=== PATIENT | female | born 1980 | race Caucasian/White ===

== ENCOUNTER 2016-11-10 21:33 | Outpatient (CLI) | payer OTHER ==
[~2016-11-10 21:33] MED LIST: ACET325T45 PO; DOXY100T20 PO
[2016-11-10 22:33] VITALS: BP 108/69; PULSE 88; RESP 18
[2016-11-10] MEDS ORDERED: PRENAT PO (22:51)
[2016-11-10] MEDS ORDERED: FERR134T PO (22:51)
[2016-11-10 23:14] LABS: ADD UMIC NO; UR BILIRUBIN (Dip) NEGATIVE (NEGATIVE); UR BLOOD (Dip) NEGATIVE (NEGATIVE); UR CLARITY CLEAR (CLEAR); UR COLOR LT. YELLOW (YELLOW); UR GLUCOSE (Dip) NEGATIVE (NEGATIVE); UR KETONES (Dip) NEGATIVE (NEGATIVE); UR LEUKOCYTE ESTERASE (Dip) NEGATIVE (NEGATIVE); UR NITRITE (Dip) NEGATIVE (NEGATIVE); UR TOTAL PROTEIN (Dip) NEGATIVE (NEGATIVE); UR UROBILINOGEN (Dip) 0.2 E.U./dL (0.1-1.0)
--- NOTE | 2016-11-10 23:27 | QN ---
Documentation Comment iup 34 weeks co of ucx vss exam wnl os closed nst reactive a/p iup 34 weeks false labor dc home PRASAD SCHULTZ MD Nov 10, 2016 23:27
--- NOTE | 2016-11-11 00:11 | RADRPT ---
PROCEDURE: US biophysical profile. CLINICAL INDICATION: labor TECHNIQUE: Multiple sonographic images of the pelvis were obtained. The images were reviewed on a PACS workstation. COMPARISON: No prior studies are available for comparison. FINDINGS: There is a single viable intrauterine gestation in cephalic presentation. There is an anterior grad e II placenta.. Results of the biophysical profile are as follows breathing movement = 2/2 Gross body movement = 2/2 tone = 2/2 Quantitative amniotic fluid volume = 2/2. This yields a biophysical profile score of 8/8. There is an amniotic fluid index measuring 8.9 cm. heart rate measures 161 beats per minute. IMPRESSION: Single viable intrauterine gestation, with biophysical profile of 8/8. RPTAT: HBST .Zaire Nguyen MD, Date Time Electronically viewed and signed by .Zaire Nguyen MD, on 11/11/2016 00:11 .T/
--- NOTE | 2016-11-11 05:33 | TRIAGE ---
OB Triage Datetime Report Generated by CPN: 11/11/2016 05:33 Datetime: 11/10/2016 22:44 Time of Arrival: 11/10/2016 21:26 EGA: 34.6 Arrived By: Wheelchair Arrived From: Home Chief Complaint: w/ c/o occas ucs and vag pressure. Hx PTD at 34 wks Movement: Present Contractions: Irregular Time Contractions Began: 11/10/2016 16:00 Rupture of Membranes: Denies Vaginal Bleeding: None Vaginal Discharge: Denies Recent Sexual Intercouse: Denies Abdominal Trauma: Not Applicable Patient Complaints: Cramping Time Provider Notified: 11/10/2016 23:00 Provider Notified: Dr Bradley (Annotations: Data stored by N on behalf of user) Initial Plan: EFM, SVE Datetime: 11/10/2016 22:39 Stage of : OB Triage Labor Evaluation Frequency: x1 Monitor Mode: External Quality: Mild Pattern: Normal: <= 5 Contractions in 10 Minutes Resting Tone [place]: Relaxed Heart Rate FHR Baseline Rate: 140 Monitor Mode: External US FHR Baseline Changes: No Baseline Change Variability: Moderate 6-25 bpm Accelerations: 15X15 Decelerations: Variable Category: Category II Vaginal Exam Dilatation (cms): 0.0 Effacement (%): 50 Station: -3 Exam By: Mic Reina Membrane Status: Intact Vaginal Bleeding: None Cervix, Consistency: Moderate Cervix, Position: Anterior Datetime: 11/10/2016 22:09 Stage of : OB Triage Maternal Assessment Level of Consciousness: Fully Conscious Headache: Denies Blurred Vision: No Respiratory Effort: Unlabored Nausea/Vomiting: Denies RUQ Epigastric Pain: Denies Facial Edema: None Labor Evaluation Frequency: placed Monitor Mode: External Resting Tone [place]: Relaxed Monitor Mode: External US Comments: FHT 140 Pain Assessment Pain Scale: 5 Pain Presence: Intermittent Pain Type: Cramping; Pressure Pain Location: Abdomen; Perineum
== END 2016-11-11 00:45 | disposition home or self-care (01) ==
LOC: L-D 21:33 → OBT 21:33
PROVIDERS: ATTEND Obstetrics & Gynecology
DX: O47.03 False labor before 37 completed weeks of gestation, third trimester (principal); O09.523 Supervision of elderly multigravida, third trimester; Z3A.34 34 weeks gestation of pregnancy
CPT/HCPCS: 76818; 81003; Z7500; G0463

== ENCOUNTER 2016-12-08 19:12 | Inpatient (IN) | payer OTHER ==
[~2016-12-08] VITALS: Ht 160 cm; Wt 99.1 kg
[~2016-12-08 19:12] MED LIST changes: -ACET325T45 PO; -DOXY100T20 PO; +FERR134T PO; +PRENAT PO
[2016-12-08 19:44] VITALS: BP 108/67; PULSE 84; RESP 18; BMI 34.5
[2016-12-08] MEDS ORDERED: CALC600T11 PO (19:54)
[2016-12-08 20:28] LABS: ADD UMIC NO; UR ASCORBIC ACID NEGATIVE (NEGATIVE); UR BILIRUBIN (Dip) NEGATIVE (NEGATIVE); UR BLOOD (Dip) NEGATIVE (NEGATIVE); UR CLARITY CLEAR (CLEAR); UR COLOR YELLOW (YELLOW); UR GLUCOSE (Dip) NEGATIVE (NEGATIVE); UR KETONES (Dip) NEGATIVE (NEGATIVE); UR LEUKOCYTE ESTERASE (Dip) NEGATIVE Leu/ul (NEGATIVE); UR NITRITE (Dip) NEGATIVE (NEGATIVE); UR SPECIFIC GRAVITY (Dip) 1.013 (1.003-1.030); UR TOTAL PROTEIN (Dip) NEGATIVE (NEGATIVE); UR UROBILINOGEN (Dip) NEGATIVE (NEGATIVE)
[2016-12-08 20:39] LABS: ADD SCAN DIFF NO
[2016-12-08 20:43] LABS: BASOPHILS % 0.2 % (0.0-2.0); EOSINOPHILS # 0.1 10^3/ul (0.0-0.5); EOSINOPHILS % 1.6 % (0.0-7.0); HEMATOCRIT 35.6 % (37.0-47.0); HEMOGLOBIN 12.1 g/dl (12.0-16.0); LYMPHOCYTES # 1.6 10^3/ul (0.8-2.9); LYMPHOCYTES % 19.5 % (15.0-51.0); MEAN CORPUSCULAR HEMOGLOBIN 30.6 pg (29.0-33.0); MEAN CORPUSCULAR VOLUME 89.9 fl (82.0-101.0); MEAN PLATELET VOLUME 10.2 fl (7.4-10.4); MONOCYTE # 0.8 10^3/ul (0.3-0.9); MONOCYTES % 9.7 % (0.0-11.0); NEUTROPHIL # 5.5 10^3/ul (1.6-7.5); PLATELET COUNT 255 10^3/UL (140-415); RED BLOOD COUNT 3.96 10^6/ul (4.20-5.40); RED CELL DISTRIBUTION WIDTH 14.6 % (11.5-14.5); WHITE BLOOD COUNT 8.1 10^3/ul (4.8-10.8)
[2016-12-08 21:02] LABS: ALBUMIN 3.9 g/dl (3.3-4.9); ALBUMIN/GLOBULIN RATIO 1.25; BILIRUBIN,INDIRECT 0.1 mg/dl (0-1.1); BILIRUBIN,TOTAL 0.1 mg/dl (0.2-1.3); CALCIUM 8.9 mg/dl (8.4-10.2); CREATININE 0.45 mg/dl (0.44-1.00); POTASSIUM 3.8 mmol/L (3.5-5.1); URIC ACID 3.4 mg/dl (3.1-7.9)
[2016-12-08] MEDS ORDERED: METHYLERGONOVINE 0.2 MG INJ IM PRN (23:30)
[2016-12-08] MEDS ORDERED: DINOPROSTONE 10 MG VAG SUPP VAG ONE (23:30)
[2016-12-08] MEDS ORDERED: MISOPROSTOL 200 MCG TAB PR PRN (23:30)
[2016-12-08] MEDS ORDERED: LIDOCAINE 1% (MPF) 30 ML INJ INJ PRN (23:30)
[2016-12-08] MEDS ORDERED: OXYTOCIN 30 UNITS/LR 500 ML IV PRN (23:30)
[2016-12-08] MEDS ORDERED: OXYTOCIN 30 UNITS/LR 500 ML IV SCH ×2 (23:30)
[2016-12-08] MEDS ORDERED: CARBOPROST 250 MCG INJ IM PRN (23:30)
[2016-12-09 00:35] LABS: INR 0.95; PROTIME 12.7 Sec (12.2-14.2)
[2016-12-09 00:36] LABS: PARTIAL THROMBOPLASTIN TIME 27.2 Sec (25.0-35.0)
--- NOTE | 2016-12-09 00:57 | RADRPT ---
PROCEDURE: US OB. CLINICAL INDICATION: Macrosomia. TECHNIQUE: Multiple sonographic images of the pelvis were obtained. Transabdominal imaging only w as performed. The images were reviewed on a PACS workstation. COMPARISON: 11/10/2016 FINDINGS: There is a single viable intrauterine gestation. Cardiac activity is present with 139 beats per minute. There is a cephalic presentation. Measurements were made in order to determine age. The results are as follows: BPD = 9.75 cm HC = 33.83 cm AC = 34.84 cm FL = 7.54 cm Estimated gestational age of approximately 39 weeks 0 days. The estimated date of delivery is 12/16/2016. The EFW = 3619 g. EFW percentile: 69% The placenta is anterior, grade 2. There is no evidence for an abruption or placenta previa. IMPRESSION: 1. Single viable intrauterine gestation of approximately 39 weeks 0 days, based on ultrasound measu rements. The estimated date of delivery is 12/16/2016. 2. EFW percentile: 69%. RPTAT: HTAR .Stewart Hoffman MD, Date Time Electronically viewed and signed by .Stewart Hoffman MD, on 12/09/2016 00:57 .R/
[2016-12-09] MEDS: LACTATED RINGER'S 1,000 ML IV SCH ×4 (01:05→20:07)
[2016-12-09] MEDS ORDERED: LACTATED RINGER'S 1,000 ML IV PRN (03:00)
--- NOTE | 2016-12-09 07:08 | QN ---
Documentation Comment iup 38 weeks co ucs vss exam wno nst reactive a/p iup 38 weeks false labor dc home PRASAD SCHULTZ MD Dec 09, 2016 07:08
[2016-12-09] MEDS: BUTORPHANOL 2 MG INJ IV PRN ×2 (11:58→17:53)
[2016-12-09] MEDS ORDERED: OXYTOCIN 30 UNITS/LR 500 ML IV SCH (14:00)
[2016-12-09] MEDS ORDERED: FENTAnyl 2MCG/ML-ROPIV 0.2% 100 ML ONE (21:18)
[2016-12-09] MEDS ORDERED: NALOXONE (0.4 MG/ML) INJ IV PRN (22:00)
[2016-12-09] MEDS ORDERED: FENTAnyl 2MCG/ML-ROPIV 0.2% 100 ML BAG EPI SCH (22:00)
[2016-12-09] MEDS ORDERED: ONDANSETRON 4 MG INJ IV PRN (22:00)
[2016-12-09] MEDS ORDERED: EPHEDrine SULFATE 50 MG/5 ML SYG IV PRN (22:00)
[2016-12-09] MEDS ORDERED: DIPHENHYDRAMINE 50 MG INJ IV PRN (22:00)
[2016-12-10] MEDS: LACTATED RINGER'S 1,000 ML IV SCH ×6 (00:35→22:35)
--- NOTE | 2016-12-10 01:57 | QN ---
Documentation Comment Laborist In to see pt and review FHT at request of primary OB, Dr. Stockton. Pt recently started having variables which were not improved with position changes and IVF bolus. On review of FHT, recurrent variable decels to 90s noted in the setting of a baseline 150s with mod jacek. Discussed with pt recommendation for placement of IUPC for the purpose of amnioinfusion and pt amenable to this. Questions were answered to her satisfaction. On SVE, initially 6/70/0, however after placement of IUPC, 770/0. Amnioinfusion to start. FWB overall reassuring despite Category II FHT. LUANNE GONCALVES MD Dec 10, 2016 01:57
--- NOTE | 2016-12-10 04:35 | HP ---
Date/Time of Note Date/Time of Note DATE: 12/10/16 TIME: 04:30 OB - History Hx of Present Free Text/Dictation 35 yo iup at 39 wks ga, complaining with generalized itching and rash in lower extremity. Patient admitted for delivery secondary to suspected cholestasis of . Estimated Due Date: Dec 16, 2016 : 7 Para: 4 Spontaneous : 2 Therapeutic : 0 Care: Good Care Ultrasounds: Normal mid trimester US Obstetrical Complications: None Medical Complications: None Other Concerns: suspected cholestasis Past Family/Social History * Past Medical, Surgical, Family and Obstetric Histories reviewed from chart. OB Admission Exam Vital Signs Vital Signs Vital Signs Date Time Temp Pulse Resp B/P Pulse Ox O2 Delivery O2 Flow Rate FiO2 12/08/16 19:44 97.9 84 18 108/67 Room Air Physical Exam HEENT: WNL Heart: Rhythm Normal Lungs: Clear, Equal Abdomen: WNL Extremities: Other (rash in lower extremity ) Reflexes: Normal Cervical Dilatation: None Effacement: 50% Station: -3 Membranes: Intact Heart Rate: 140's Accelerations: Accelerations Present Decelerations: No Decelerations Varibility: Moderate Contractions on Admission: None Last 72 hours Lab Results CBC & BMP 12/08/16 20:35 Liver Function Test 12/08/16 20:35 Alanine Aminotransferase (ALT/SGPT) 29 Albumin 3.9 Alkaline Phosphatase 144 H Aspartate Amino Transf (AST/SGOT) 17 Direct Bilirubin 0.00 Total Protein 7.0 OB Assessment/Plan Other Assessment: cholestasis Plan: Induction Induction Method: per Misoprostol Protocol NICO FATIMA MD Dec 10, 2016 04:35
[2016-12-10] MEDS ORDERED: AMPICILLIN 2 GM/NS (PMX) 100 ML ONE (04:49)
--- NOTE | 2016-12-10 04:58 | QN ---
Documentation Comment patient seen and evaluated vs t 100.3 abdomen graivid nt extremity plus 1 pitting edema no calf tenderness ve: fd/ 100/ -1 fhr 170's/180' toco regular ctx a/ 35 yo iup at 39 wks ga, ama, cholestasis of , cat 2 tracing, trending towards chorioamnionitis. patient decline to continue labor and desires CD. P/ start triple antibiotics consent for primary CD r/b/a explained NICO FATIMA MD Dec 10, 2016 04:58
[2016-12-10] MEDS ORDERED: GENTAMICIN 120 MG/NS (PMX) 100 ML IVPB SCH (05:00)
[2016-12-10] MEDS ORDERED: CLINDAMYCIN 900 MG INJ IM ONE (05:00)
[2016-12-10] MEDS ORDERED: AMPICILLIN 2 GM/NS (PMX) 100 ML IVPB SCH (05:00)
[2016-12-10] MEDS ORDERED: CLINDAMYCIN 900 MG/D5W (PMX) 50 ML IVPB ONE (05:17)
[2016-12-10] MEDS ORDERED: CLINDAMYCIN 900 MG/D5W (PMX) 50 ML IVPB SCH (05:30)
[2016-12-10] MEDS ORDERED: OXYTOCIN 30 UNITS/LR 500 ML IV ONE (05:30)
[2016-12-10] MEDS ORDERED: OXYTOCIN 10 UNIT INJ ONE (05:30)
[2016-12-10] MEDS ORDERED: ONDANSETRON 4 MG INJ ONE (05:30)
[2016-12-10] MEDS ORDERED: morphine SULFATE/PF (10 MG/10 ML) INJ ONE (05:30)
[2016-12-10] MEDS ORDERED: EPHEDrine SULFATE 50 MG/5 ML SYG ONE (05:30)
[2016-12-10] MEDS ORDERED: METOCLOPRAMIDE 10 MG INJ ONE (05:30)
[2016-12-10] MEDS ORDERED: ONDANSETRON 4 MG INJ IV PRN (06:30)
[2016-12-10] MEDS ORDERED: NALOXONE (0.4 MG/ML) INJ IV PRN (06:30)
[2016-12-10] MEDS ORDERED: HYDROmorphONE 1 MG/ML SYG IV PRN ×2 (06:30)
[2016-12-10] MEDS ORDERED: morphine SULFATE/PF (10 MG/10 ML) INJ EPI ONE (06:30)
[2016-12-10] MEDS ORDERED: DIPHENHYDRAMINE 50 MG INJ IV PRN (06:30)
[2016-12-10] MEDS ORDERED: KETOROLAC 30 MG INJ IV PRN (06:30)
[2016-12-10] MEDS ORDERED: morphine 2 MG INJ IV PRN ×2 (06:30)
[2016-12-10] MEDS ORDERED: OXYCODONE/ACETAMINOPHEN (5/325) TAB PO PRN (07:00)
[2016-12-10] MEDS ORDERED: OXYTOCIN 30 UNITS/LR 500 ML IV PRN (07:00)
[2016-12-10] MEDS ORDERED: CARBOPROST 250 MCG INJ IM PRN (07:00)
[2016-12-10] MEDS ORDERED: NA PHOSPHATE/BIPHOS 133 ML ENEMA PR PRN (07:00)
[2016-12-10] MEDS ORDERED: CLINDAMYCIN 900 MG/D5W (PMX) 50 ML IV ONE (07:00)
[2016-12-10] MEDS ORDERED: LANOLIN 7 GM TUBE TOP PRN (07:00)
[2016-12-10] MEDS ORDERED: METHYLERGONOVINE 0.2 MG INJ IM PRN (07:00)
[2016-12-10] MEDS ORDERED: GENTAMICIN 280 MG in SOD CHLORIDE 0.9% 100 ML IVPB SCH (07:00)
[2016-12-10] MEDS ORDERED: MISOPROSTOL 200 MCG TAB PR PRN (07:00)
[2016-12-10] MEDS: SENNA/DOCUSATE NA (8.6MG/50MG) TAB PO SCH ×2 (10:32→21:00)
[2016-12-10 11:08] LABS: ADD SCAN DIFF NO
[2016-12-10 11:23] LABS: ABNORMAL IP MESSAGE 1; BASOPHILS % 0.1 % (0.0-2.0); HEMATOCRIT 24.1 % (37.0-47.0); HEMOGLOBIN 8.1 g/dl (12.0-16.0); LYMPHOCYTES # 1.3 10^3/ul (0.8-2.9); LYMPHOCYTES % 5.6 % (15.0-51.0); MEAN CORPUSCULAR HEMOGLOBIN 30.8 pg (29.0-33.0); MEAN CORPUSCULAR HGB CONC 33.6 g/dl (32.0-37.0); MEAN CORPUSCULAR VOLUME 91.6 fl (82.0-101.0); MEAN PLATELET VOLUME 10.8 fl (7.4-10.4); MONOCYTE # 1.8 10^3/ul (0.3-0.9); MONOCYTES % 7.8 % (0.0-11.0); NEUTROPHIL # 19.2 10^3/ul (1.6-7.5); NEUTROPHILS % 85.9 % (39.0-77.0); PLATELET COUNT 228 10^3/UL (140-415); RED BLOOD COUNT 2.63 10^6/ul (4.20-5.40); RED CELL DISTRIBUTION WIDTH 14.8 % (11.5-14.5); WHITE BLOOD COUNT 22.3 10^3/ul (4.8-10.8)
[2016-12-10 11:33] LABS: ALBUMIN 2.5 g/dl (3.3-4.9); ALBUMIN/GLOBULIN RATIO 1.13; BILIRUBIN,INDIRECT 0.4 mg/dl (0-1.1); BILIRUBIN,TOTAL 0.4 mg/dl (0.2-1.3); CALCIUM 7.8 mg/dl (8.4-10.2); CREATININE 0.74 mg/dl (0.44-1.00); POTASSIUM 3.8 mmol/L (3.5-5.1); TOTAL PROTEIN 4.7 g/dl (6.1-8.1)
[2016-12-10] MEDS: AMPICILLIN 2 GM/NS (PMX) 100 ML IV SCH ×2 (11:48→18:52)
[2016-12-10] MEDS ORDERED: AMPICILLIN 2 GM/NS (PMX) 100 ML IV SCH (12:00)
[2016-12-10] MEDS: GENTAMICIN 80 MG/NS (PMX) 50 ML IVPB SCH ×2 (13:45→20:09)
--- NOTE | 2016-12-10 14:32 | RADRPT ---
PROCEDURE: US Pelvis. CLINICAL INDICATION: Pelvic pain. Status post . TECHNIQUE: Multiple sonographic images of the pelvis were obtained utilizing a transabdominal and endovaginal technique. The images were reviewed on a PACS workstation. This exam is limited due to the patient's overlying wound dressing. COMPARISON: December 09, 2016 FINDINGS: The uterus is anteverted and . Along the surgical incision, there is a focal, 1 x 1 x 1 cm hematoma. No free fluid, fluid collection or pelvic hematoma identified. The bilateral adnexal are otherwise unremarkable. IMPRESSION: Unremarkable pelvic ultrasound. Status post recent . 1 cm focal hematoma along the surgica l incision. Otherwise, no free fluid, fluid collection or pelvic hematoma. RPTAT: EE .Carola Gaviria MD, Date Time Electronically viewed and signed by .Carola Gaviria MD, on 12/10/2016 14:32 .F/
[2016-12-10] MEDS: CLINDAMYCIN 900 MG/D5W (PMX) 50 ML IVPB SCH ×2 (14:57→22:11)
--- NOTE | 2016-12-10 18:42 | RADRPT ---
PROCEDURE: CT abdomen and pelvis with contrast. CLINICAL INDICATION: Pain after with bleeding TECHNIQUE: CT scan of the abdomen and pelvis with contrast was performed on a multi-slice CT scann . The patient was scanned after administration of 100 cc of Isovue 300 intravenous contrast. Oral contrast was also administered. Sagittal and coronal reformatted images were obtained from the axial source images. DLP 926.3 mGycm. CTDIvol 16.4 mGy COMPARISON: None. FINDINGS: Mild bibasilar atelectasis is present.. Postsurgical changes are seen in the anterior lower abdominal wall from recent . They ther e is fat stranding is seen along the incisional site with subcutaneous air and trace fluid without o rganized subcutaneous fluid collection. There is also mild fat stranding within the abdominal wall musculature itself. There is an enlarged edematous appearance the uterine parenchyma with air seen in the uterine cavity and in the anterior lower uterine segment myometrium likely related to postsurgical changes. There is an area of heterogeneous density measuring 9.6 x 8.7 cm within the lower uterine parenchyma which enhances differently than the remaining uterus seen in the surgical bed worrisome for dehiscence of the site and presence of a hematoma. There is mild hemorrhagic fluid and fat stranding s een in the anterior fat adjacent to the uterus. The bladder is collapsed around a De La Vega catheter. There is mild intraperitoneal free fluid, with a small intraperitoneal free air likely related to re cent surgery. There is hepatomegaly and fatty infiltration of the liver with no focal lesion or biliary ductal dil atation. The gallbladder is unremarkable without inflammation, and the portal vein is intact withou t thrombus. The spleen is unremarkable without mass. The adrenal glands are within normal limits without mass. The kidneys enhance symmetrically bilaterally without hydronephrosis or perinephric stranding. Ther e are no renal or ureteral calculi. The pancreas is unremarkable without focal lesion or surrounding inflammatory changes. There is no bowel obstruction or focal bowel inflammation. The appendix is not seen. There is a mil dly fecal filled colon. There are no enlarged lymph nodes. The aorta is unremarkable and there is no acute osseous abnormality. IMPRESSION: Surgical changes is seen with a suspected hematoma measuring 9.6 x 8.7 7 meters in the ant erior lower uterine segment parenchyma which has abnormal density and possible dehiscence of the C-s ection site within the uterine parenchyma. There is a small amount of hemorrhage and fluid seen in the fat anterior to the uterus on the smaller intra peritoneal ascites. There is air within the per itoneal cavity, anterior retroperitoneal fat, abdominal wall in the subcutaneous fat related to surg ical changes without evidence of an organized fluid collection to suggest an abscess. Hepatomegaly and fatty liver. Enlarged edematous appearance of the uterus likely related to recent state. Bibasilar atelectasis. RPTAT: AA .Killian Martines MD, MD Date Time Electronically viewed and signed by .Killian Martines MD, on 12/10/2016 18:41 .J/
[2016-12-10 20:07] LABS: ADD SCAN DIFF NO
[2016-12-10 20:09] LABS: BASOPHILS % 0.2 % (0.0-2.0); EOSINOPHILS % 0.1 % (0.0-7.0); HEMATOCRIT 28.4 % (37.0-47.0); HEMOGLOBIN 9.8 g/dl (12.0-16.0); LYMPHOCYTES # 1.8 10^3/ul (0.8-2.9); LYMPHOCYTES % 10.1 % (15.0-51.0); MEAN CORPUSCULAR HEMOGLOBIN 30.4 pg (29.0-33.0); MEAN CORPUSCULAR HGB CONC 34.5 g/dl (32.0-37.0); MEAN CORPUSCULAR VOLUME 88.2 fl (82.0-101.0); MEAN PLATELET VOLUME 10.2 fl (7.4-10.4); MONOCYTE # 1.5 10^3/ul (0.3-0.9); MONOCYTES % 8.5 % (0.0-11.0); NEUTROPHILS % 80.5 % (39.0-77.0); PLATELET COUNT 181 10^3/UL (140-415); RED BLOOD COUNT 3.22 10^6/ul (4.20-5.40); RED CELL DISTRIBUTION WIDTH 15.3 % (11.5-14.5); WHITE BLOOD COUNT 17.4 10^3/ul (4.8-10.8)
--- NOTE | 2016-12-10 20:32 | OPR ---
Operative Report Planned Procedure Free Text/Dictation DATE OF OPERATION: 12/10/2016 PREOPERATIVE DIAGNOSIS: 35 yo Intrauterine at 39 weeks gestational age, AMA, cholestasis of , category 2 tracing, arrest in descent, mulitparous POSTOPERATIVE DIAGNOSIS: Same. OPERATION PERFORMED: Primary low transverse delivery with bilateral tubal ligation, modified Malcolm method SURGEON: Nico Fatima MD. IN HOME CAREGIVER: Dr. Porter ANESTHESIA: Epidural COMPLICATIONS OF PROCEDURE: None. ESTIMATED BLOOD LOSS: 700 mL. (Reported patient has vaginal bleeding Post approximately 500 ml) FINDINGS: A viable female, 9 and 9 respectively at 1 and 5 minutes. Weight 3,405 grams . OP presentation, Normal uterus, tubes and ovaries. Pathology: portion of right and left fallopian tube, placenta DESCRIPTION OF PROCEDURE: After explaining the risks, benefits and alternatives , the patient and consent signed in chart, the patient was taken to the operating room where epidural anesthesia was found to be adequate. She was then prepared and draped in normal sterile fashion in dorsal supine position with a leftward tilt. A Pfannenstiel skin incision was then made with a scalpel and carried to the underlying layer of fascia. The fascia was incised in the midline and incision was extended laterally with Flanagan scissors. The superior aspect of the fascial incision was grasped with curved clamps, elevated and the underlying rectus muscles dissected off bluntly. Attention was then turned to the inferior aspect of the incision, which in similar fashion was grasped, tented up with curved clamps and the rectus muscles dissected off bluntly. The rectus muscles were then in midline, peritoneum identified, tented up with Metzenbaum scissors. The peritoneal incision was extended superiorly, inferiorly with good visualization of bladder. . At this point, the bladder blade was then inserted and the vesicouterine peritoneum identified, grasped with pickups and entered sharply with Metzenbaum scissors. This incision was extended laterally and the bladder flap created digitally. The bladder blade was then reinserted and was incised in transverse fashion with a scalpel. The uterine incision was extended laterally. The bladder blade was removed and the 's head delivered atraumatically. The nose and mouth were suctioned and cord clamped and cut. The infant was handed off to awaiting direct chill caster. The placenta was then removed. The uterus was exteriorized and cleared of all clots and debris. The uterine incision was repaired with 1-0 chromic in a running locked fashion. A second layer of same suture was used for imbrication obtaining excellent hemostasis. At this point, a [place] clamp was used to grasp the left tube approximately 4 cm from the cornual region. A 3 cm segment of tube was ligated with a free tie of plain gut and excised. Good hemostasis was noted. Similarly, the right fallopian tube was excised. The uterus was returned to the abdomen. The gutters were cleared of all clots. Good hemostasis was assured from the tubal ligation site and uterine incision. Fibrillar was placed in lower uterine segment (prophylactically) The peritoneum was reapproximated with 2-0 plain gut in interrupted fashion. The fascia was reapproximated with 0 Vicryl in a running fashion. The subcutaneous tissue was reapproximated with 2-0 plain gut in a running fashion. The skin was closed with charlee. The patient tolerated procedure well. Sponge, lap and needle counts correct x2. The patient was taken to recovery room in stable condition. Procedure date Dec 10, 2016 Procedure(s) primary CD with bilateral tubal ligation Procedure Description Under satisfactory [] anesthesia, the patient was prepped and draped and placed in a supine position, tilted to the left. Pfannenstiel incision was made, carried through the subcutaneous tissue. Bleeders brought under control with electrocautery. Fascia incised to the length of the incision. Rectus muscles from the fascia, divided midline. Peritoneum exposed, entered through a transverse incision. Exploration of abdomen revealed gravid uterus. Bladder flap was developed. Transverse incision was made in the lower segment of the uterus. Amniotic sac ruptured. [] amniotic fluid noted. [] Nasal oropharyngeal suction was performed. The baby was handed to the team for immediate attention. The placenta was delivered manually intact. Uterine cavity was cleaned with wet sponge and drainage established. Uterus closed in 2 layers using [] in continuous fashion. Peritoneal cavity irrigated with warm saline. Sponge, needle and instrument count reported to be correct. Abdominal peritoneum closed with [] continuously. Rectus muscle approximated with []. Fascia closed with [], and skin closed with charlee. Estimated blood loss []mL. Urine bag contained []mL of urine Post-Procedure Findings: Live Baby [], Apgars [] and [], weight [], position [], [] presentation []cord. Disposition: PACU Physician Certification I, the undersigned physician, hereby certify that I have discussed the procedure described in this consent form with this patient (or the patient's legal community engagement representative), including: * The risk and benefits of the procedure; * Any adverse reactions that may reasonably be expected to occur; * Any alternative efficacious methods of treatment which may be medically viable ; * The potential problems that may occur during recuperation; * Potential for blood transfusion and associated risks/benefits; and * Any research or economic interest I may have regarding this treatment. I further certify that the patient/legally responsible person was encouraged to ask question and that all questions were answered. NICO FATIMA MD Dec 10, 2016 20:30
--- NOTE | 2016-12-10 20:49 | QN ---
Documentation Comment Progress note POD 0 Patient was seen and evaluated patient received 2 units of prbc earlier secondary to symptomatic anemia. Patient currently lying in supine position with and baby in room without any distress patient has no complaints. No n/v no sob, no visual changes, no palpitation vs temp 98.6 bp 106/57 O2 98percent Heent normal lungs cta b/l cvs s1s2 rrr abdomen postive distention tympanic, soft nt. incision c/d/i with charlee in place extremity plus 2 b/l pitting edema, no calf tenderness ve no active vaginal bleeding ct scan suspected pelvic hematoma. (discussed with dr. cheung,radiologist, best to observe patient if stable) cbc post transfusion h/h 9.8/28.4 a/ s/p primary CD with btl, given 2 units of prbc, suspected pelvic hematoma patient currently stable, afebrile p/ continue to monitor patient transfuse 1 unit of ffp and platelet per recommendation of anesthesia consider to surgical reexplore surgically if needed. NICO FATIMA MD Dec 10, 2016 20:48
[2016-12-10] MEDS ORDERED: morphine 4 MG/ML VIAL IV PRN (21:00)
[2016-12-10] MEDS ORDERED: CA CHLORIDE 10% 10 ML SYRINGE IV ONE (22:30)
[2016-12-10] MEDS ORDERED: CA CHLORIDE 10% 10 ML SYRINGE ONE (22:33)
[2016-12-10] MEDS ORDERED: NA BICARBONATE 8.4% 50 ML SYG ONE ×2 (22:34→22:55)
[2016-12-10] MEDS ORDERED: NA BICARBONATE 8.4% 50 ML SYG IV STA (22:50)
[2016-12-10] MEDS ORDERED: LIDOCAINE 100 MG SYRINGE ONE (22:55)
[2016-12-11] MEDS ORDERED: CA CHLORIDE 10% 10 ML SYRINGE IV ONE
[2016-12-11] MEDS ORDERED: NA BICARBONATE 8.4% 50 ML SYG IV ONE
[2016-12-11] MEDS: AMPICILLIN 2 GM/NS (PMX) 100 ML IV SCH ×2 (00:12→05:31)
--- NOTE | 2016-12-11 00:52 | RADRPT ---
PROCEDURE: US Non-OB Pelvis. CLINICAL INDICATION: Swelling, status post section earlier today. TECHNIQUE: Multiple sonographic images of the pelvis were obtained utilizing a transabdominal tech nique. The images were reviewed on a PACS workstation. COMPARISON: CT of the abdomen pelvis and pelvic ultrasound dated 12/10/2016 FINDINGS: There is an enlarged, appearance of the uterus. The anterior uterine myometrium is heter ogeneously hypoechoic, probably representing blood related to recent section. Doppler imag ing reveals no vascularity in this region. The endometrium is not definitively thickened. The ovaries are not visualized. There is a small volume of free fluid in the right adnexa. No adnexal masses are noted. IMPRESSION: 1. Enlarged, appearance of the uterus. 2. Heterogeneously hypoechoic anterior uterine myometrium, probably representing blood related to r ecent section. No vascularity is identified in this region to suggest active bleeding. 3. The ovaries are not visualized. 4. Small volume free pelvic fluid in the right adnexa. RPTAT: HTAR .Stewart Hoffman MD, Date Time Electronically viewed and signed by .Stewart Hoffman MD, on 12/11/2016 00:51 .R/
[2016-12-11] MEDS ORDERED: LIDOCAINE 100 MG SYRINGE IV ONE (01:00)
[2016-12-11 01:11] LABS: ADD SCAN DIFF NO
[2016-12-11 01:12] LABS: BASOPHILS % 0.2 % (0.0-2.0); EOSINOPHILS % 0.1 % (0.0-7.0); HEMATOCRIT 31.3 % (37.0-47.0); HEMOGLOBIN 10.9 g/dl (12.0-16.0); LYMPHOCYTES # 1.8 10^3/ul (0.8-2.9); LYMPHOCYTES % 11.4 % (15.0-51.0); MEAN CORPUSCULAR HEMOGLOBIN 29.6 pg (29.0-33.0); MEAN CORPUSCULAR HGB CONC 34.8 g/dl (32.0-37.0); MEAN CORPUSCULAR VOLUME 85.1 fl (82.0-101.0); MEAN PLATELET VOLUME 10.4 fl (7.4-10.4); MONOCYTE # 1.3 10^3/ul (0.3-0.9); MONOCYTES % 8.4 % (0.0-11.0); NEUTROPHIL # 12.7 10^3/ul (1.6-7.5); PLATELET COUNT 174 10^3/UL (140-415); RED BLOOD COUNT 3.68 10^6/ul (4.20-5.40); RED CELL DISTRIBUTION WIDTH 16.4 % (11.5-14.5)
[2016-12-11 01:17] LABS: Allen Test ACCEPTAB; Arterial Base Excess 3.1 mmol/L (-3.0-3); Arterial COHb 0.3 % (0.0-3.0); Arterial Fraction of Oxyhgb 93.5 % (93.0-99.0); Arterial HCO3 26.1 mmol/L (22.0-26.0); Arterial MetHb 0.5 % (0.0-1.5); Arterial Total Hemglobin 11.6 g/dl (12.0-18.0); MODE NASAL CANNULA
[2016-12-11 01:34] LABS: ALBUMIN 2.7 g/dl (3.3-4.9); ALBUMIN/GLOBULIN RATIO 1.17; BILIRUBIN,INDIRECT 1.1 mg/dl (0-1.1); BILIRUBIN,TOTAL 1.1 mg/dl (0.2-1.3); CALCIUM 10.4 mg/dl (8.4-10.2); CREATININE 0.61 mg/dl (0.44-1.00); MAGNESIUM 1.2 mg/dl (1.7-2.5); POTASSIUM 3.9 mmol/L (3.5-5.1)
[2016-12-11] MEDS ORDERED: MAGNESIUM SULFATE 1 GM/D5W 100 ML IVPB ONE (02:00)
[2016-12-11] MEDS: GENTAMICIN 80 MG/NS (PMX) 50 ML IVPB SCH ×4 (04:01→20:42)
[2016-12-11] MEDS: LACTATED RINGER'S 1,000 ML IV SCH ×3 (05:05→22:35)
[2016-12-11] MEDS: IBUPROFEN 600 MG TAB PO SCH ×4 (06:00→18:45)
[2016-12-11 06:04] LABS: ADD SCAN DIFF NO
[2016-12-11 06:07] LABS: BASOPHIL # 0.1 10^3/ul (0.0-0.1); BASOPHILS % 0.3 % (0.0-2.0); EOSINOPHILS # 0.1 10^3/ul (0.0-0.5); EOSINOPHILS % 0.4 % (0.0-7.0); HEMOGLOBIN 10.3 g/dl (12.0-16.0); LYMPHOCYTES # 1.8 10^3/ul (0.8-2.9); LYMPHOCYTES % 11.8 % (15.0-51.0); MEAN CORPUSCULAR HEMOGLOBIN 28.8 pg (29.0-33.0); MEAN CORPUSCULAR HGB CONC 34.3 g/dl (32.0-37.0); MEAN CORPUSCULAR VOLUME 83.8 fl (82.0-101.0); MONOCYTE # 1.3 10^3/ul (0.3-0.9); MONOCYTES % 8.1 % (0.0-11.0); NEUTROPHIL # 12.2 10^3/ul (1.6-7.5); NEUTROPHILS % 78.7 % (39.0-77.0); PLATELET COUNT 167 10^3/UL (140-415); RED BLOOD COUNT 3.58 10^6/ul (4.20-5.40); WHITE BLOOD COUNT 15.6 10^3/ul (4.8-10.8)
[2016-12-11 06:26] LABS: AADO2 Arterial 89.8 mmHg (7.0-24.0); Allen Test ACCEPTAB; Arterial Base Excess 3.2 mmol/L (-3.0-3); Arterial COHb 0.3 % (0.0-3.0); Arterial HCO3 26.1 mmol/L (22.0-26.0); Arterial MetHb 0.5 % (0.0-1.5); Arterial Total Hemglobin 11.1 g/dl (12.0-18.0); MODE NASAL CANNULA
[2016-12-11] MEDS: CLINDAMYCIN 900 MG/D5W (PMX) 50 ML IVPB SCH ×3 (06:35→20:10)
[2016-12-11] MEDS: OXYCODONE/ACETAMINOPHEN (5/325) TAB PO PRN ×2 (08:15→21:48)
[2016-12-11] MEDS: SENNA/DOCUSATE NA (8.6MG/50MG) TAB PO SCH ×2 (08:16→20:10)
[2016-12-11] MEDS: AMPICILLIN 2 GM/NS (PMX) 100 ML IVPB SCH ×2 (12:06→18:45)
[2016-12-11 14:45] LABS: ADD SCAN DIFF NO
[2016-12-11 14:47] LABS: BASOPHILS % 0.3 % (0.0-2.0); EOSINOPHILS # 0.1 10^3/ul (0.0-0.5); EOSINOPHILS % 0.8 % (0.0-7.0); HEMATOCRIT 29.2 % (37.0-47.0); HEMOGLOBIN 10.1 g/dl (12.0-16.0); LYMPHOCYTES % 13.2 % (15.0-51.0); MEAN CORPUSCULAR HEMOGLOBIN 28.9 pg (29.0-33.0); MEAN CORPUSCULAR HGB CONC 34.6 g/dl (32.0-37.0); MEAN CORPUSCULAR VOLUME 83.7 fl (82.0-101.0); MONOCYTE # 1.3 10^3/ul (0.3-0.9); MONOCYTES % 8.2 % (0.0-11.0); NEUTROPHIL # 11.7 10^3/ul (1.6-7.5); NEUTROPHILS % 76.4 % (39.0-77.0); PLATELET COUNT 162 10^3/UL (140-415); RED BLOOD COUNT 3.49 10^6/ul (4.20-5.40); RED CELL DISTRIBUTION WIDTH 16.6 % (11.5-14.5); WHITE BLOOD COUNT 15.3 10^3/ul (4.8-10.8)
[2016-12-11 15:06] LABS: CALCIUM 8.3 mg/dl (8.4-10.2); CREATININE 0.55 mg/dl (0.44-1.00); POTASSIUM 3.1 mmol/L (3.5-5.1)
[2016-12-11 15:08] LABS: INR 1.05; PARTIAL THROMBOPLASTIN TIME 29.2 Sec (25.0-35.0); PROTIME 13.7 Sec (12.2-14.2); PT RATIO 1.1
--- NOTE | 2016-12-11 16:01 | RADRPT ---
PROCEDURE: US Pelvis. CLINICAL INDICATION: Recent section. Vaginal bleeding. TECHNIQUE: The pelvis was evaluated with transabdominal sonography in the axial and sagittal plane s. COMPARISON: 12/10/2016. FINDINGS: The uterus is enlarged consistent with the state. The endometrium is thickened measuring 48.7 mm. A small amount of fluid is present in the endometrial canal. The ovaries are not visuali zed. There is no other pelvic mass or free fluid. There is no fluid collection in the anterior pel jasiel wall at the site of the surgery. IMPRESSION: 1. Enlarged uterus consistent with the state. 2. Thickened endometrium which may indicate blood products or retained products of conception. Cli nical correlation advised. 3. Ovaries not visualized. 4. Otherwise unremarkable study. RPTAT: QQ .Zhou Frederick MD, MD Date Time Electronically viewed and signed by .Zhou Frederikc MD, MD on 12/11/2016 16:01 .R/
[2016-12-11 16:02] VITALS: Ht 160 cm; Wt 99.1 kg
[2016-12-11 18:00] VITALS: BP 90/54; PULSE 93; RESP 16
[2016-12-11 19:20] VITALS: BP 88/59; PULSE 89; RESP 19
--- NOTE | 2016-12-11 21:17 | QN ---
Documentation Comment Progress note POD 1 Patient was seen and evaluated Patient currently lying in supine position with and baby in room without any distress patient has no complaints. No n/v no sob, no visual changes, no palpitation tolerating regular diet, voiding vs stable afebrile Heent normal lungs cta b/l cvs s1s2 rrr abdomen mild distention, soft nt. incision c/d/i with charlee in place extremity plus 1 b/l pitting edema, no calf tenderness ve no active vaginal bleeding pelvic ultrasound normal cbc post transfusion h/h 10.1/29.2 stable a/ s/p primary CD with btl, given 4 units of prbc, stable afebrile p/ continue to monitor patient repeat cbc in am NICO FATIMA MD Dec 11, 2016 21:17
--- NOTE | 2016-12-11 21:37 | NSTRPT ---
NST Information Datetime Report Generated by CPN: 12/11/2016 21:37 Datetime: 12/08/2016 09:39 NST Information EGA: 38.6 Test Number: 1 Time on Monitor: 12/08/2016 09:58 Time off Monitor: 12/08/2016 10:25 NST Duration (Min): 27 Reason for NST: Other Reason for NST Other: AMA Test and Monitor Explained: Monitor Explained; Test Explained; Verbalized Understanding; Breastfee ding Info Given Pulse: 82 Resp: 18 SBP: 90 DBP: 54 Test Evaluation NST Interventions: Reposition Patient Patient States Movement: Present Contraction Frequency: X2(mild) FHR Baseline : 125 Variability: Moderate 6-25bpm Accelerations: 15X15 Decelerations: None FHR Category: Category I NST Results: Reactive Comments: To u/s. ANALILIA 15.9cm. CEPHALIC. BPP 8/8, 1030-Pt home undelivered with labor precautions, kick count instructions reviewed, and foll ow up NST appt given. States understanding and denies further questions at this time. Electronically Signed By E-Signature: with User ID: [id number]
[2016-12-12] MEDS: IBUPROFEN 600 MG TAB PO SCH ×5 (00:17→23:44)
[2016-12-12] MEDS: AMPICILLIN 2 GM/NS (PMX) 100 ML IVPB SCH (00:17)
[2016-12-12] MEDS: CLINDAMYCIN 900 MG/D5W (PMX) 50 ML IVPB SCH (02:01)
[2016-12-12 04:00] VITALS: BP 101/59; PULSE 79; RESP 20
[2016-12-12] MEDS: GENTAMICIN 80 MG/NS (PMX) 50 ML IVPB SCH (04:41)
[2016-12-12] MEDS: LACTATED RINGER'S 1,000 ML IV SCH ×3 (06:35→22:35)
[2016-12-12 08:10] VITALS: BP 112/61; PULSE 73; RESP 16
[2016-12-12] MEDS: SENNA/DOCUSATE NA (8.6MG/50MG) TAB PO SCH ×2 (08:27→20:40)
[2016-12-12] MEDS: OXYCODONE/ACETAMINOPHEN (5/325) TAB PO PRN ×2 (08:28→22:06)
[2016-12-12 08:30] LABS: ADD SCAN DIFF NO
[2016-12-12 08:36] LABS: BASOPHILS % 0.2 % (0.0-2.0); EOSINOPHILS # 0.3 10^3/ul (0.0-0.5); HEMATOCRIT 29.3 % (37.0-47.0); LYMPHOCYTES # 1.5 10^3/ul (0.8-2.9); LYMPHOCYTES % 12.5 % (15.0-51.0); MEAN CORPUSCULAR HGB CONC 34.1 g/dl (32.0-37.0); MEAN CORPUSCULAR VOLUME 84.9 fl (82.0-101.0); MEAN PLATELET VOLUME 10.9 fl (7.4-10.4); NEUTROPHIL # 9.4 10^3/ul (1.6-7.5); NEUTROPHILS % 76.2 % (39.0-77.0); PLATELET COUNT 177 10^3/UL (140-415); RED BLOOD COUNT 3.45 10^6/ul (4.20-5.40); RED CELL DISTRIBUTION WIDTH 16.2 % (11.5-14.5); WHITE BLOOD COUNT 12.3 10^3/ul (4.8-10.8)
[2016-12-12 15:40] VITALS: BP 94/53; PULSE 81; RESP 16
--- NOTE | 2016-12-12 18:51 | QN ---
Documentation Comment Progress note POD 2 Patient was seen and evaluated No complaints tolerating regular diet, voiding vs stable afebrile Heent normal lungs cta b/l cvs s1s2 rrr abdomen minimal distention, soft nt. incision c/d/i with charlee in place extremity plus 1 b/l pitting edema, no calf tenderness ve no active vaginal bleeding pelvic ultrasound normal cbc post transfusion h/h 10.1/29.2 stable a/ s/p primary CD with btl, given 4 units of prbc, stable afebrile h/h stable p/ continue to monitor patient NICO FATIMA MD Dec 12, 2016 18:51
[2016-12-12 19:30] VITALS: BP 114/71; PULSE 86; RESP 20
[2016-12-13 04:00] VITALS: BP 98/65; PULSE 65; RESP 19
[2016-12-13] MEDS: IBUPROFEN 600 MG TAB PO SCH ×4 (05:35→23:33)
[2016-12-13] MEDS: LACTATED RINGER'S 1,000 ML IV SCH ×2 (06:35→14:35)
[2016-12-13 08:45] VITALS: BP 127/73; PULSE 66; RESP 17
[2016-12-13] MEDS: SENNA/DOCUSATE NA (8.6MG/50MG) TAB PO SCH ×2 (09:02→21:08)
[2016-12-13] MEDS: OXYCODONE/ACETAMINOPHEN (5/325) TAB PO PRN ×2 (12:58→22:34)
[2016-12-13 15:50] VITALS: BP 97/67; PULSE 61; RESP 17
--- NOTE | 2016-12-13 18:19 | QN ---
Documentation Comment Progress note POD 3 Patient was seen and evaluated No complaints tolerating regular diet, voiding, positive bowel movement vs stable afebrile Heent normal lungs cta b/l cvs s1s2 rrr abdomen no distention, soft nt. incision c/d/i with charlee in place extremity no edema, no calf tenderness ve no active vaginal bleeding pelvic ultrasound normal cbc post transfusion h/h 10.1/29.2 stable a/ s/p primary CD with btl, given 4 units of prbc, stable afebrile h/h stable p/ discharge home tomorrow f/u office this sunday to remove charlee t NICO FATIMA MD Dec 13, 2016 18:18
--- NOTE | 2016-12-13 18:20 | PD.PPDC ---
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 Condition Patient Condition: Fair Diet Diet: Resume Regular Diet Activity/Restrictions Activity: Normal Activity May Shower Restrictions: No Exercising No Lifting No Driving No Sexual Activity Nothing in the Vagina No [place] No Tampons, douche Wound/Drain Care Instructions Wound/Drain Care Instructions: Keep clean and dry Follow-up Follow-up with Physician: 3, Day/Days Provider Information: f/u office this sunday to remove charlee Return to clinic for [facility]BULE[facility] DRIVER Instructions: Fever greater than 101 Chills Worsening abdominal pain Excessive Vaginal Bleeding More than 2 pads per hour Unable to tolerate diet OB Instructions: Breast Tenderness Depression Blurried Vision Headache Surgical Instructions: Incisional Drainage Incisional Redness NICO FATIMA MD Dec 13, 2016 18:20
--- NOTE | 2016-12-13 18:26 | DS ---
Date/Time of Note Date/Time of Note DATE: 12/13/16 TIME: 18:21 Discharge Summary Admission/Discharge Info Admit Date/Time Dec 08, 2016 at 22:29 Discharge Date/Time December 14, 2016 Discharge Diagnosis iup at term, in labor, cholestasis of , chorioamnionitis, arrest in descent, post hemorrhage, anemia Patient Condition: Fair Consults nurse obgyn consult anesthesia consult Procedures primary CD Hospital Course primary cd 4 uniits of PRBC/ blood products given for symptomatic anemia secondary to pp hemorrhage Home Meds Reported Medications Calcium Carbonate* (Calcium Carbonate*) 600 MG Ca Tab, 600 MG PO DAILY, TAB 12/08/16 Ferrous Sulfate (Iron) 134 Mg Tablet, 134 MG PO DAILY, TAB 11/10/16 Multivit/Min/Fol Ac/Iron/Pren* ( S*) 1 Tab Tab, 1 TAB PO DAILY, TAB 11/10/16 Follow-up Plan follow up office this sunday to remove charlee Primary Care Provider [facility] Time spent on discharge: < 30 minutes NICO FATIMA MD Dec 13, 2016 18:26
[2016-12-13 19:30] VITALS: BP 122/73; PULSE 67; RESP 20
[2016-12-14] MEDS: IBUPROFEN 600 MG TAB PO SCH ×2 (05:39→11:24)
[2016-12-14 07:25] VITALS: BP 118/68; PULSE 68; RESP 19
[2016-12-14] MEDS: SENNA/DOCUSATE NA (8.6MG/50MG) TAB PO SCH (09:49)
== END 2016-12-14 14:00 | disposition home or self-care (01) | DRG 765 ==
LOC: OBT 19:12 → L-D 19:12 → OBT 22:28 → L-D 22:29 → PP1 12-11 17:59
PROVIDERS: ADMIT Obstetrics & Gynecology; ATTEND Obstetrics & Gynecology
PROC: 0UB70ZZ Excision of Bilateral Fallopian Tubes, Open Approach (ICD-10-PCS; 2016-12-10)
PROC: 10H07YZ Insertion of Other Device into Products of Conception, Via Natural or Artificial Opening (ICD-10-PCS; 2016-12-10)
PROC: 3E0E77Z Introduction of Electrolytic and Water Balance Substance into Products of Conception, Via Natural or Artificial Opening (ICD-10-PCS; 2016-12-10)
PROC: 30233R1 Transfusion of Nonautologous Platelets into Peripheral Vein, Percutaneous Approach (ICD-10-PCS; 2016-12-10)
PROC: 30233K1 Transfusion of Nonautologous Frozen Plasma into Peripheral Vein, Percutaneous Approach (ICD-10-PCS; 2016-12-10)
PROC: 30233N1 Transfusion of Nonautologous Red Blood Cells into Peripheral Vein, Percutaneous Approach (ICD-10-PCS; 2016-12-10)
PROC: 10D00Z1 Extraction of Products of Conception, Low, Open Approach (ICD-10-PCS; principal; 2016-12-10 06:00)
PROC: 4A033R1 Measurement of Arterial Saturation, Peripheral, Percutaneous Approach (ICD-10-PCS; 2016-12-11)
DX: O26.62 Liver and biliary tract disorders in childbirth (principal); K83.1 Obstruction of bile duct; O41.1230 Chorioamnionitis, third trimester, not applicable or unspecified; O72.1 Other immediate postpartum hemorrhage; O32.4XX0 Maternal care for high head at term, not applicable or unspecified; O76 Abnormality in fetal heart rate and rhythm complicating labor and delivery; O90.81 Anemia of the puerperium; Z30.2 Encounter for sterilization; Z3A.39 39 weeks gestation of pregnancy; Z37.0 Single live birth
CPT/HCPCS: 36430; 36600; 62319; 74177; 76815; 76856; 80048; 80053; 81003; 82150; 82803; 83690; 83735; 83789; 84560; 85025; 85610; 85730; 86592; 86850; 86900; 86901; 86920; 86945; 87340; 88302; 88307; 99464; G0463; J0290; J0595; J1170; J1580; J1885; J2001; J2270; J2274; J2405; J2590; J2765; J3010; J3475; J7120; P9016; P9035; P9059